=== PATIENT | male | born 1970 | race Caucasian/White ===

== ENCOUNTER 2019-12-16 07:03 | Day surgery (SDC) | payer OTHER ==
[~2019-12-16] VITALS: Ht 175.3 cm; Wt 100.0 kg
[2019-12-16] MEDS ORDERED: LIDOCAINE 2%, 20ML ONE (07:33)
== END 2019-12-16 08:02 | disposition home or self-care (01) ==
LOC: CACL 07:03
PROVIDERS: ATTEND Internal Medicine Cardiovascular Disease
DX: I49.8 Other specified cardiac arrhythmias (principal); E11.9 Type 2 diabetes mellitus without complications; I10 Essential (primary) hypertension; E78.5 Hyperlipidemia, unspecified; Z87.891 Personal history of nicotine dependence; Z79.899 Other long term (current) drug therapy; Z72.89 Other problems related to lifestyle; Z82.49 Family history of ischemic heart disease and other diseases of the circulatory system
CPT/HCPCS: 33285; C1764

== ENCOUNTER 2020-08-03 11:12 | Day surgery (SDC) | payer OTHER ==
[~2020-08-03] VITALS: Ht 175.3 cm; Wt 93.0 kg
[2020-08-03] MEDS ORDERED: PIOG30TA67 PO (11:43)
[2020-08-03] MEDS ORDERED: EMPA1TAB19 PO (11:43)
[2020-08-03] MEDS ORDERED: LOSA100T14 PO (11:43)
[2020-08-03] MEDS ORDERED: ATOR40TA PO (11:43)
[2020-08-03] MEDS ORDERED: SODIUM CHLORIDE 0.9% 1,000 ML IV SCH (12:00)
[2020-08-03 12:01] LABS: BASOPHILS % (AUTO) 0 % (0-1); EOSINOPHILS % (AUTO) 2 % (1-7); LYMPHOCYTES % (AUTO) 44 % (22-44); MEAN CORPUSCULAR HEMOGLOBIN 29.5 pg (27.5-34.5); MEAN CORPUSCULAR HGB CONC 34.2 g/dL (33.2-36.2); MEAN PLATELET VOLUME 7.6 fL (7.4-10.4); MONOCYTES % (AUTO) 6 % (2-9); NEUTROPHILS % (AUTO) 47 % (42-75); PLATELET COUNT 232 x10^3/uL (130-400); RED BLOOD COUNT 5.29 x10^6/uL (4.38-5.82); RED CELL DISTRIBUTION WIDTH 13.2 % (9.4-14.8)
[2020-08-03 12:03] LABS: MD NO
[2020-08-03 12:11] LABS: ANION GAP 9 mmol/L (5-15); CALCIUM 8.4 mg/dL (8.5-10.1); CHLORIDE 109 mmol/L (98-107); CREATININE 1.14 mg/dL (0.7-1.3)
[2020-08-03 12:12] LABS: INTERNATIONAL NORMALIZED RATIO 0.99 (0.93-1.1); PROTHROMBIN TIME 10.6 Seconds (9.6-11.5)
[2020-08-03] MEDS ORDERED: ISOPROTERENOL 0.2MG/ML, 5ML ONE (12:51)
[2020-08-03] MEDS ORDERED: FENTANYL PF 100 MCG/2ML ONE ×2 (12:51→14:15)
[2020-08-03] MEDS ORDERED: ADENOSINE 6 MG/2 ML ONE (12:51)
[2020-08-03] MEDS ORDERED: MIDAZOLAM 1 MG/ML, 5ML ONE (12:51)
[2020-08-03] MEDS ORDERED: LIDOCAINE 2%, 20ML ONE ×2 (12:51→13:26)
[2020-08-03] MEDS ORDERED: MIDAZOLAM 1 MG/ML, 2ML ONE ×2 (12:55→14:15)
[2020-08-03 18:00] VITALS: BP 129/85
[2020-08-03 19:43] VITALS: BP 167/73
== END 2020-08-03 20:10 | disposition home IV services (08) ==
LOC: CACL 11:12 → 5SO 16:13 → CACL 20:10
PROVIDERS: ATTEND Internal Medicine Clinical Cardiac Electrophysiology
DX: I47.1 Supraventricular tachycardia (principal); I10 Essential (primary) hypertension; E11.9 Type 2 diabetes mellitus without complications; E78.5 Hyperlipidemia, unspecified; Z79.01 Long term (current) use of anticoagulants; Z79.84 Long term (current) use of oral hypoglycemic drugs; Z79.899 Other long term (current) drug therapy; Z88.8 Allergy status to other drugs, medicaments and biological substances
CPT/HCPCS: 36415; 71046; 80048; 85025; 85610; 85730; 93005; 93613; 93623; 93653; 99156; 99157; C1730; C1766; C1894; C2630; J2250; J3010; G0378; J0153